=== PATIENT | female | born 1985 | race American Indian/Alaskan Native ===

== ENCOUNTER 2017-06-25 18:18 | Emergency (ER) | payer MEDICAID, OTHER ==
[2017-06-25 19:31] LABS: Basophils # (Auto) 0.1 K/mm3 (0.0-0.1); Basophils % (Auto) 1.4 % (0.0-1.8); Eosinophils # (Auto) 0.1 K/mm3 (0.0-0.4); Eosinophils % (Auto) 1.8 % (0.0-4.3); Hematocrit 42.2 % (30.3-42.9); Hemoglobin 14.3 gm/dl (10.1-14.3); Lymphocytes # (Auto) 2.1 K/mm3 (1.2-5.4); Lymphocytes % (Auto) 32.3 % (13.4-35.0); Mean Corpuscular HGB Conc 34 % (30-34); Mean Corpuscular Hemoglobin 30 pg (28-32); Mean Corpuscular Volume 90 fl (79-97); Monocytes # (Auto) 0.6 K/mm3 (0.0-0.8); Monocytes % (Auto) 8.8 % (0.0-7.3); Platelet Count 227 K/mm3 (140-440); Red Cell Distribution Width 13.2 % (13.2-15.2)
--- NOTE | 2017-06-25 19:32 | XRay Report ---
FINAL REPORT EXAM: XR CHEST ROUTINE 2V HISTORY: Shortness of breath TECHNIQUE: PA and lateral views of the chest PRIORS: None. FINDINGS: Lines, tubes, and devices: N/A Lungs and pleura: Trachea is normal in position. Lungs are clear of infiltrate, pleural effusion, vascular congestion, or pneumothorax. Nipple bar is present on the left. Cardiomediastinal silhouette: Cardiac and mediastinal silhouettes are unremarkable. Other: Bony structures are intact. IMPRESSION: No acute cardiopulmonary process seen.
[2017-06-25 19:43] LABS: BUN/Creatinine Ratio 28; Blood Urea Nitrogen 17 mg/dL (7-17); Calcium 9.7 mg/dL (8.4-10.2); Hemolysis Index 7
--- NOTE | 2017-06-25 20:53 | Emergency Department Report ---
ED Chest Pain HPI - General Chief Complaint: Dyspnea/Respdistress Stated Complaint: CHEST PAIN/SOB/RT ARM PAIN Time Seen by Provider: 06/25/17 20:37 Source: patient Mode of arrival: Ambulatory Limitations: No Limitations - History of Present Illness Initial Comments: This 31-year-old -[place] female presents to the emergency department from home, driving herself and to be seen, with complaint of a 2 day history of back pain, chest pain and some radiation down the arm. It started off as back pain in the middle of her back, then went to the arm, and now she has had some consistent midsternal chest pain. It is associated with some shortness of breath but she denies any nausea, vomiting, diaphoresis. She denies any tobacco or illicit drug use or abuse. There is no significant cardiac history in her nuclear family. She does not have a primary care physician or criminal profiler. The patient did just traveled to and from [place] leaving on the and returning for days ago. She did take some ibuprofen for her symptoms and says that it "helps her to breathe." - Related Data Previous Rx's Medication Instructions Recorded Last Taken Type traMADol [Ultram 50 MG tab] 50 mg PO Q6HR PRN #8 tablet 07/24/13 Unknown Rx Azithromycin [Zithromax Z-BRITTANY] 250 mg PO DAILY #6 tablet 07/17/14 Unknown Rx Butalb/Acetaminophen/Caffeine 1 each PO Q6H PRN #14 capsule 07/17/14 Unknown Rx [Fioricet 50-300-40 mg Capsule] Amoxicillin/K Clav Tab [Augmentin 1 tab PO Q12HR #20 tab 10/31/15 Unknown Rx 875 mg] Prednisone [predniSONE 10 mg 10 mg PO .TAPER #1 tab.ds.pk 10/31/15 Unknown Rx (6-Day Pack, 21 Tabs)] Promethazine /Codeine 5 ml PO Q6H PRN #150 ml 10/31/15 Unknown Rx [Phenergan/Codeine 6.25-10 mg/5 ml] ALBUTEROL Inhaler [ProAir HFA 2 puff IH QID PRN #1 inhalation 06/26/17 Unknown Rx Inhaler] predniSONE [Deltasone] 20 mg PO QDAY #5 tab 06/26/17 Unknown Rx Allergies Allergy/AdvReac Type Severity Reaction Status Date / Time No Known Allergies Allergy Verified 10/31/15 00:37 Heart Score - HEART Score History: Slightly suspicious EKG: Normal Age: < 45 Risk factors: No known risk factors Troponin: < normal limit HEART Score: 0 - Critical Actions Critical Actions: 0-3 pts:0.9-1.7%risk of adverse cardiac event.Candidate for discharge ED Review of Systems ROS: Stated complaint: CHEST PAIN/SOB/RT ARM PAIN Other details as noted in HPI Comment: All other systems reviewed and negative Constitutional: denies: chills, fever Eyes: denies: eye pain, eye discharge, vision change ENT: denies: ear pain, throat pain Respiratory: shortness of breath. denies: cough Cardiovascular: chest pain. denies: palpitations Gastrointestinal: denies: abdominal pain, nausea, diarrhea Genitourinary: denies: urgency, dysuria, discharge Musculoskeletal: back pain. denies: joint swelling Skin: denies: rash, lesions Neurological: denies: headache, weakness, paresthesias ED Past Medical Hx - Past Medical History Previous Medical History?: Yes - Surgical History Past Surgical History?: No - Social History Smoking Status: Never Smoker Substance Use Type: Alcohol - Medications Home Medications: Home Medications Medication Instructions Recorded Confirmed Last Taken Type traMADol [Ultram 50 MG tab] 50 mg PO Q6HR PRN #8 tablet 07/24/13 Unknown Rx Azithromycin [Zithromax Z-BRITTANY] 250 mg PO DAILY #6 tablet 07/17/14 Unknown Rx Butalb/Acetaminophen/Caffeine 1 each PO Q6H PRN #14 capsule 07/17/14 Unknown Rx [Fioricet 50-300-40 mg Capsule] Amoxicillin/K Clav Tab [Augmentin 1 tab PO Q12HR #20 tab 10/31/15 Unknown Rx 875 mg] Prednisone [predniSONE 10 mg 10 mg PO .TAPER #1 tab.ds.pk 10/31/15 Unknown Rx (6-Day Pack, 21 Tabs)] Promethazine /Codeine 5 ml PO Q6H PRN #150 ml 10/31/15 Unknown Rx [Phenergan/Codeine 6.25-10 mg/5 ml] ALBUTEROL Inhaler [ProAir HFA 2 puff IH QID PRN #1 inhalation 06/26/17 Unknown Rx Inhaler] predniSONE [Deltasone] 20 mg PO QDAY #5 tab 06/26/17 Unknown Rx ED Physical Exam - General Limitations: No Limitations - Other Other exam information: GENERAL: The patient is well-developed well-nourished. HENT: Normocephalic. Atraumatic. Patient has moist mucous membranes. EYES: Extraocular motions are intact. Pupils equal reactive to light bilaterally. NECK: Supple. Trachea is midline. CHEST/LUNGS: Clear to auscultation. There is no respiratory distress noted. HEART/CARDIOVASCULAR: Regular. There is no tachycardia. There is no murmur. ABDOMEN: Abdomen is soft, nontender. Patient has normal bowel sounds. There is no abdominal distention. SKIN: Skin is warm and dry. NEURO: The patient is awake, alert, and oriented. The patient is cooperative. The patient has no focal neurologic deficits. The patient has normal speech. MUSCULOSKELETAL: There is no tenderness or deformity. There is no limitation range of motion. There is no evidence of acute injury. ED Course Vital Signs 06/25/17 06/25/17 06/25/17 18:27 21:00 21:21 Temperature 98.8 F Pulse Rate 75 74 Pulse Rate [ Anterior Bilateral Throughout] Respiratory 14 16 16 Rate Respiratory Rate [Anterior Bilateral Throughout] Blood Pressure 113/73 Blood Pressure 112/67 [Left] O2 Sat by Pulse 98 98 100 Oximetry 06/25/17 06/25/17 06/26/17 23:11 23:20 00:41 Temperature 98 F Pulse Rate 76 Pulse Rate [ 75 82 Anterior Bilateral Throughout] Respiratory 16 Rate Respiratory 16 19 Rate [Anterior Bilateral Throughout] Blood Pressure Blood Pressure 110/74 [Left] O2 Sat by Pulse 100 Oximetry THIERNO score - Thierno Score Age > 65: (0) No Aspirin use within the Past 7 Days: (0) No 3 or more CAD Risk Factors: (0) No 2 or more Angina events in past 24 hrs: (0) No Known CAD with more than 50% Stenosis: (0) No Elevated Cardiac Markers: (0) No ST Deviation Greater than 0.5mm: (0) No THIERNO Score: 0 ED Medical Decision Making - Lab Data Result diagrams: 06/25/17 18:57 06/25/17 18:57 - EKG Data -: EKG Interpreted by Ga EKG shows normal: sinus rhythm, axis, intervals, QRS complexes, ST-T waves Rate: normal - EKG Data When compared to previous EKG there are: previous EKG unavailable Interpretation: normal EKG - Radiology Data Radiology results: image reviewed interpreted by me: Chest x-ray does not show any acute process. There are no pleural effusions, obvious pneumonia and there is no pneumothorax. - Medical Decision Making Patient presents with some chest pain, shortness of breath and radiation down the arm. EKG does not show any signs of ST elevation NE, ischemia or dysrhythmia. Chest x-ray does not show any pneumonia, pleural effusions, pneumothorax or any acute process. The patient had negative troponins 2 and a negative d-dimer. The rest of the labs are unremarkable as well. Vital signs stable throughout ED course. She was given Solu-Medrol and some pain medication and a breathing treatment and upon reevaluation she says she is feeling much better and feels that the Solu-Medrol is what did it. She is low on the heart score criteria and has a THIERNO score of 0. She appears safe for discharge home at this time. She was given referrals for primary care and cardiology and sent home with an albuterol inhaler and 5 day course of steroids. She will return to the ER for any worsening of her symptoms or any acute distress. - Differential Diagnosis pleurisy, NE, PE, costochondritis Critical Care Time: No Critical care attestation.: If time is entered above; I have spent that time in minutes in the direct care of this critically ill patient, excluding procedure time. ED Disposition Clinical Impression: Pleurisy Chest pain Qualifiers: Chest pain type: unspecified Qualified Code(s): R07.9 - Chest pain, unspecified Disposition: - TO HOME OR SELFCARE Is pt being admited?: No Condition: Stable Instructions: Chest Pain (ED), Pleurisy (ED) Additional Instructions: Please follow up with a primary care physician in the next 3 days. Return to the emergency Department with any worsening of your symptoms or any acute distress. I have given you a referral for a local criminal profiler, Dr. Salazar, to follow up regarding your chest pain. Prescriptions: ALBUTEROL Inhaler [ProAir HFA Inhaler] 2 puff IH QID PRN #1 inhalation PRN Reason: Shortness Of Breath predniSONE [Deltasone] 20 mg PO QDAY #5 tab Referrals: LINDA GUERRA MD [Primary Care Provider] - 3-5 Days LISA SANCHEZ MD [Staff Physician] - 3-5 Days CONY SALAZAR MD [Staff Physician] - 3-5 Days [facility] [Outside] - 3-5 Days Time of Disposition: 00:06
[2017-06-25] MEDS ORDERED: MORPHINE IV ONE (21:29)
[2017-06-25] MEDS ORDERED: DUONEB *Not for PRN Use IH ONE (22:07)
[2017-06-26 00:42] VITALS: BP 110/74
== END 2017-06-26 00:45 | disposition home or self-care (01) ==
LOC: ED 18:18
DX: R09.1 Pleurisy (principal); R07.9 Chest pain, unspecified
CPT/HCPCS: 36415; 71046; 80048; 84484; 84703; 85025; 85379; 93005; 93010; 94640; 96374; 96375; 99284; J2270; J2930

== ENCOUNTER 2020-03-01 01:54 | Emergency (ER) | payer OTHER ==
[2020-03-01 02:05] VITALS: BP 117/81
[2020-03-01] MEDS ORDERED: BUTALB/ACETAMINOPHEN/CAFFEINE TAB PO ONE (03:29)
[2020-03-01] MEDS ORDERED: dexAMETHasone 20 MG/5 ML VIAL IV ONE (03:29)
--- NOTE | 2020-03-01 03:40 | Emergency Department Report ---
ED General Adult HPI - General Chief complaint: Headache Stated complaint: HEAD PAIN Time Seen by Provider: 03/01/20 02:53 Source: patient Mode of arrival: Ambulatory Limitations: No Limitations - History of Present Illness Initial comments: 34-year-old -[place] female patient presents with complaints of bilateral headache since around 4 PM yesterday. Patient states headache began after she had a fall injury and hit her head. She states she may have lost consciousness for a few seconds and states that she does have some mild nausea. She denies any vomiting, vision changes, dizziness, numbness/tingling/weakness in her limbs, neck pain, fatigue, confusion, memory loss, or difficulty with speech/ambulation. She rates her current headache as a 8/10 in severity and denies trying any OTC medication for symptoms prior to arrival. She admits to a history of migraines and states she normally takes Goody's powders for these. She denies being on any blood thinners or any other chronic medical issues -: Sudden - Related Data Previous Rx's Medication Instructions Recorded Last Taken Type traMADoL [Ultram 50 MG tab] 50 mg PO Q6HR PRN #8 tablet 07/24/13 Unknown Rx Azithromycin [Zithromax Z-BRITTANY] 250 mg PO DAILY #6 tablet 07/17/14 Unknown Rx Amoxicillin/K Clav Tab [Augmentin 1 tab PO Q12HR #20 tab 10/31/15 Unknown Rx 875 mg] Prednisone [predniSONE 10 mg 10 mg PO .TAPER #1 tab.ds.pk 10/31/15 Unknown Rx (6-Day Pack, 21 Tabs)] Promethazine /Codeine 5 ml PO Q6H PRN #150 ml 10/31/15 Unknown Rx [Phenergan/Codeine 6.25-10 mg/5 ml] Albuterol Mdi (or & Nicu Only) 2 puff IH QID PRN #1 inhalation 06/26/17 Unknown Rx [ProAir HFA Inhaler] predniSONE [Deltasone] 20 mg PO QDAY #5 tab 06/26/17 Unknown Rx Butalb/Acetaminophen/Caffeine 1 each PO Q8H PRN #10 capsule 03/01/20 Unknown Rx [Fioricet 50-300-40 mg CAP] Allergies Allergy/AdvReac Type Severity Reaction Status Date / Time No Known Allergies Allergy Verified 05/27/16 00:37 ED Review of Systems ROS: Stated complaint: HEAD PAIN Other details as noted in HPI Constitutional: denies: chills, fever, malaise Eyes: denies: eye pain, eye discharge Respiratory: denies: shortness of breath Cardiovascular: denies: chest pain Gastrointestinal: nausea. denies: vomiting Musculoskeletal: denies: back pain Skin: denies: rash, lesions Neurological: headache. denies: weakness, numbness, paresthesias, confusion, abnormal gait ED Past Medical Hx - Past Medical History Previous Medical History?: Yes Hx Headaches / Migraines: Yes - Surgical History Past Surgical History?: No - Social History Smoking Status: Never Smoker Substance Use Type: None - Medications Home Medications: Home Medications Medication Instructions Recorded Confirmed Last Taken Type traMADoL [Ultram 50 MG tab] 50 mg PO Q6HR PRN #8 tablet 07/24/13 Unknown Rx Azithromycin [Zithromax Z-BRITTANY] 250 mg PO DAILY #6 tablet 07/17/14 Unknown Rx Amoxicillin/K Clav Tab [Augmentin 1 tab PO Q12HR #20 tab 10/31/15 Unknown Rx 875 mg] Prednisone [predniSONE 10 mg 10 mg PO .TAPER #1 tab.ds.pk 10/31/15 Unknown Rx (6-Day Pack, 21 Tabs)] Promethazine /Codeine 5 ml PO Q6H PRN #150 ml 10/31/15 Unknown Rx [Phenergan/Codeine 6.25-10 mg/5 ml] Albuterol Mdi (or & Nicu Only) 2 puff IH QID PRN #1 inhalation 06/26/17 Unknown Rx [ProAir HFA Inhaler] predniSONE [Deltasone] 20 mg PO QDAY #5 tab 06/26/17 Unknown Rx Butalb/Acetaminophen/Caffeine 1 each PO Q8H PRN #10 capsule 03/01/20 Unknown Rx [Fioricet 50-300-40 mg CAP] ED Physical Exam - General Limitations: No Limitations General appearance: alert, in no apparent distress - Head Head exam: Present: atraumatic, normocephalic - Eye Eye exam: Present: normal appearance, PERRL, EOMI. Absent: scleral icterus - ENT ENT exam: Present: normal orophraynx - Neck Neck exam: Present: normal inspection, full ROM. Absent: tenderness - Respiratory Respiratory exam: Present: normal lung sounds bilaterally. Absent: respiratory distress - Cardiovascular Cardiovascular Exam: Present: regular rate, normal rhythm. Absent: systolic murmur, diastolic murmur, rubs, gallop - GI/Abdominal GI/Abdominal exam: Present: soft. Absent: tenderness - Extremities Exam Extremities exam: Present: normal inspection, full ROM - Back Exam Back exam: Present: normal inspection, full ROM - Neurological Exam Neurological exam: Present: alert, oriented X3, CN II-XII intact, normal gait. Absent: motor sensory deficit - Expanded Neurological Exam Expanded Cerebellar function: Finger to Nose: Normal, Heel to Fay: Normal, Romberg: Normal Sensory exam: Upper Extremity Light Touch: Normal, Lower Extremity Light Touch: Normal Motor strength exam: RUE: 5, LUE: 5, RLE: 5, LLE: 5 Best Eye Response ([place]): (4) open spontaneously Best Motor Response ([place]): (6) obeys commands Best Verbal Response ([place]): (5) oriented [place] Total: 15 - Psychiatric Psychiatric exam: Present: normal affect, normal mood - Skin Skin exam: Present: warm, dry, intact, normal color. Absent: rash, cyanosis, diaphoretic, ecchymosis ED Course Vital Signs 03/01/20 01:57 Temperature 98.6 F Pulse Rate 74 Respiratory 20 Rate Blood Pressure 117/81 O2 Sat by Pulse 95 Oximetry ED Medical Decision Making - Radiology Data Radiology results: report reviewed CT head/brain wo con INDICATION: Headache after head injury. TECHNIQUE: Routine CT head without contrast. All CT scans at this location are performed using CT dose reduction for ALARA by means of automated exposure control. COMPARISON: None. FINDINGS: BRAIN / INTRACRANIAL CONTENTS: No acute hemorrhage, mass effect, midline shift, or hydrocephalus. No appreciable acute large territorial or lacunar infarct. No chronic infarct or focal atrophy. Normal brain volume and ventricular/sulcal size for age. ORBITS: No significant abnormality of visualized orbits. SINUSES / MASTOIDS: No significant abnormality of visualized sinuses and mastoid air cells. ADDITIONAL FINDINGS: None. IMPRESSION: 1. No acute intracranial abnormality. - Medical Decision Making 34-year-old -[place] female patient presents with complaints of bilateral headache since around 4 PM yesterday. Patient states headache began after she had a fall injury and hit her head. She states she may have lost consciousness for a few seconds and states that she does have some mild nausea. She denies any vomiting, vision changes, dizziness, numbness/tingling/weakness in her limbs, neck pain, fatigue, confusion, memory loss, or difficulty with speech/ambulation. She rates her current headache as a 8/10 in severity and denies trying any OTC medication for symptoms prior to arrival. She admits to a history of migraines and states she normally takes Goody's powders for these. She denies being on any blood thinners or any other chronic medical issues Neuro exam is normal. [place] Coma Scale = 15. Given possible LOC, CT head was performed and is negative for any acute abnormalities. Patient's headache treated with Decadron and Fioricet. She states her headache has resolved. Discussed possible concussion, importance of brain rest, and need for caregiver to monitor her for the next 24 hours. Recommend follow-up with PCP within 2 days. Neurology follow-up also recommended as needed. Her vitals are normal, she is well-appearing, and she is stable for discharge home. Strict return precautions were discussed in detail with patient who verbalizes understanding. Critical care attestation.: If time is entered above; I have spent that time in minutes in the direct care of this critically ill patient, excluding procedure time. ED Disposition Clinical Impression: Head injury with loss of consciousness Disposition: -01 TO HOME OR SELFCARE Is pt being admited?: No Condition: Stable Instructions: Concussion (ED) Prescriptions: Butalb/Acetaminophen/Caffeine [Fioricet 50-300-40 mg CAP] 1 each PO Q8H PRN #10 capsule PRN Reason: headache Referrals: [facility] MD ROSAURA [Primary Care Provider] - 03/03/20 ARNOLDO GUERRA MD [Staff Physician] - 3-5 Days
--- NOTE | 2020-03-01 03:54 | Cat Scan Report ---
CT head/brain wo con INDICATION: Headache after head injury. TECHNIQUE: Routine CT head without contrast. All CT scans at this location are performed using CT dos e reduction for ALARA by means of automated exposure control. COMPARISON: None. FINDINGS: BRAIN / INTRACRANIAL CONTENTS: No acute hemorrhage, mass effect, midline shift, or hydrocephalus. No appreciable acute large territorial or lacunar infarct. No chronic infarct or focal atrophy. Normal b rain volume and ventricular/sulcal size for age. ORBITS: No significant abnormality of visualized orbits. SINUSES / MASTOIDS: No significant abnormality of visualized sinuses and mastoid air cells. ADDITIONAL FINDINGS: None. IMPRESSION: 1. No acute intracranial abnormality. Signer Name: Lukas Murillo MD Signed: 03/01/2020 3:49 AM Workstation Name: [id number]
== END 2020-03-01 04:51 | disposition home or self-care (01) ==
LOC: ED 01:54
DX: S06.899A Other specified intracranial injury with loss of consciousness of unspecified duration, initial encounter (principal); G43.909 Migraine, unspecified, not intractable, without status migrainosus; Z79.899 Other long term (current) drug therapy; W18.39XA Other fall on same level, initial encounter; Y93.89 Activity, other specified; Y92.89 Other specified places as the place of occurrence of the external cause; Y99.8 Other external cause status
CPT/HCPCS: 70450; 96374; 99283; J1100